=== PATIENT | female | born 1965 | race Caucasian/White ===

== ENCOUNTER → 2016-10-06 | Outpatient (CLI) | payer OTHER | LOC: FIMAGING 15:06 | PROVIDERS: ATTEND Physical Medicine & Rehabilitation ==

== ENCOUNTER → 2017-03-14 | Outpatient (CLI) | payer OTHER | LOC: FIMAGING 12:22 | PROVIDERS: ATTEND Internal Medicine | DX: N63.20 Unspecified lump in the left breast, unspecified quadrant (principal) ==

== ENCOUNTER 2018-06-03 09:45 | Emergency (ER) | payer OTHER ==
--- NOTE | 2018-06-03 10:04 | EDPHY ---
H & P Stated Complaint: FALL FACIAL INJURIES Time Seen by Provider: 06/03/18 09:49 HPI/ROS: CHIEF COMPLAINT: Mechanical fall, facial abrasions, arm abrasions, chest wall pain HISTORY OF PRESENT ILLNESS: The patient was at work and tripped over a rock falling forward. She struck her face sustaining abrasions to her forehead, nose , chin and lip. She also sustained abrasions to her hands bilaterally. She did not lose consciousness. She is not anticoagulated. She has no complaints of headache or neck pain. The patient denies any difficulty breathing. She does have some mild pain in the left anterior upper portion of her chest. The patient denies any abdominal pain. REVIEW OF SYSTEMS: A comprehensive 10 point review of systems is otherwise negative aside from elements mentioned in the history of present illness. Source: Patient Exam Limitations: No limitations - Personal History Current Tetanus/Diphtheria Vaccine: Yes - Medical/Surgical History Hx Asthma: No Hx Chronic Respiratory Disease: No Hx Diabetes: No Hx Cardiac Disease: No Hx Renal Disease: No Hx Cirrhosis: No Hx Alcoholism: No Hx HIV/AIDS: No Hx Splenectomy or Spleen Trauma: No Other PMH: HYPOTHYROID, DIVERTICULITIS - Social History Smoking Status: Never smoked - Physical Exam Exam: General Appearance: Alert, no distress Head: Small 1 cm forehead hematoma with surrounding abrasion, multiple facial abrasions involving the nose, cheeks and upper lip Eyes: Pupils equal, round, reactive ENT, Mouth: No hemotympanum, no dental injury, no malocclusion Neck: Nontender, trachea midline Respiratory: Mild tenderness to palpation left superior anterior chest wall, no subcutaneous emphysema, lungs clear to auscultation bilaterally Cardiovascular: Regular rate and rhythm Abdomen: Abdomen is soft and nontender, pelvis stable Skin: Several superficial abrasions Back: No midline T/L/S pain Extremities: Nontender, full range of motion Neurological: A&Ox3, normal motor function, normal sensory exam, , GCS 15 Constitutional: Initial Vital Signs Heart Rate 98 06/03/18 09:45 Respiratory Rate 20 06/03/18 09:45 Blood Pressure 180/98 H 06/03/18 09:45 O2 Sat (%) 97 06/03/18 09:45 O2 Delivery Mode Room Air Allergies/Adverse Reactions: levofloxacin [From Levaquin] Allergy (Intermediate, Verified 12/17/09 08:40) Hives Cephalosporins Allergy (Mild, Verified 12/17/09 08:40) Itching bacitracin [From Neosporin] Allergy (Verified 07/26/10 14:54) bacitracin zinc [From Neosporin] Allergy (Verified 07/26/10 14:54) gramicidin D [From Neosporin] Allergy (Verified 07/26/10 14:54) neomycin sulfate [From Neosporin] Allergy (Verified 07/26/10 14:54) polymyxin B [From Neosporin] Allergy (Verified 07/26/10 14:54) polymyxin B sulfate [From Neosporin] Allergy (Verified 07/26/10 14:54) Home Medications: Medication Instructions Recorded Pantoprazole Sodium [Protonix] 40 mg PO DAILY #20 tab 07/26/10 Qvar 07/26/10 Synthroid 07/26/10 Theophylline 07/26/10 Medical Decision Making - Diagnostics Imaging Results: Imaging Impressions Chest X-Ray 06/03/18 10:01 Impression: No active cardiopulmonary disease seen. ED Course/Re-evaluation: The patient presents to the emergency department after mechanical fall. She has superficial abrasions noted to the face. She has no evidence of a closed head injury. She does not meet criteria for CT imaging. The patient did have some anterior chest wall tenderness but has no evidence of a rib fracture, pneumothorax or obvious clavicle fracture noted on her x-ray. The patient will be discharged home with customary aftercare instructions and return precautions. Differential Diagnosis: Differential diagnosis considered includes abrasion, closed head injury, facial fracture, clavicle fracture, rib fracture - Data Points Medications Given: Discontinued Medications Ibuprofen (Motrin) 800 mg PO EDNOW ONE Stop: 06/03/18 10:57 Last Admin: 06/03/18 11:02 Dose: 800 mg Departure - Departure Disposition: Home, Routine, Self-Care Clinical Impression: Facial contusion, Facial abrasion, Abrasion, multiple sites Condition: Good Instructions: Abrasion (ED) Additional Instructions: 1. Return to the ED for any worsening pain, headache, vomiting or other concerns. 2. Antibiotic ointment to abrasions twice a day. 3. Tylenol and ibuprofen as needed for pain. Referrals: Yves Adkins MD [Primary Care Provider] - As per Instructions
[2018-06-03] MEDS ORDERED: IBUPROFEN 800 MG TAB PO ONE (10:56)
[2018-06-03 11:41] VITALS: BP 138/75
== END 2018-06-03 11:42 | disposition home or self-care (01) ==
DX: S00.83XA Contusion of other part of head, initial encounter (principal); S00.81XA Abrasion of other part of head, initial encounter; S60.512A Abrasion of left hand, initial encounter; S60.511A Abrasion of right hand, initial encounter; S00.511A Abrasion of lip, initial encounter; R07.9 Chest pain, unspecified; W01.198A Fall on same level from slipping, tripping and stumbling with subsequent striking against other object, initial encounter; Y99.0 Civilian activity done for income or pay